=== PATIENT | male | born 1945 | race Caucasian/White ===

== ENCOUNTER 2021-10-04 08:13 | Inpatient (IN) | payer MEDICARE, OTHER ==
[2021-10-04 09:31] LABS: Bilirubin Neg (Negative); Blood, Urine 25 (Negative); Clarity Slightly Cloudy (Clear); Glucose, Urine (Dipstick) Normal (Negative); Ketone, Urine Negative (Negative); Leukocyte 500 (Negative); Nitrite Negative (Negative); Protein, Urine (Dipstick) 100 mg/dl (Neg-Trace); Specific Gravity, Urine 1.005 (1.002-1.036)
[2021-10-04] MEDS ORDERED: Cefepime 2 GM VIAL ONE (09:32)
[2021-10-04 10:08] LABS: Bacteria/HPF 4+ HPF (None Seen); RBC/HPF 0-3 HPF (0-3); Squamous Epithelial None Seen HPF (0-3); WBC/HPF 21-50 HPF (0-3)
[2021-10-04 10:36] LABS: #Monocytes 0.4 10x3/uL (0.0-1.1); #Neutrophils 5.4 10x3/uL (1.5-8.4); %Basophils 0.3 % (0.0-2.0); %Eosinophils 0.5 % (0.0-6.0); %Lymphocytes 7.5 % (18.0-47.0); %Monocytes 5.7 % (0.0-10.0); %Neutrophils 85.7 % (40.0-75.0); Hemoglobin 13.5 g/dL (13.5-17.5); Mean Corpuscular Hemoglobin 32.9 pg (27.0-33.0); Mean Corpuscular Volume 102.9 fl (81.2-95.1); Platelet Count 213 10x3/uL (150-450); RBC Distribution Width 16.9 % (11.5-14.5); White Blood Cell (WBC) Count 6.3 10x3/uL (3.5-10.5)
[2021-10-04 10:38] LABS: ALT (SGPT) 10 U/L (8-55); AST (SGOT) 29 U/L (5-34); Albumin 3.7 g/dL (3.4-4.8); Alkaline Phosphatase 179 U/L (40-110); Anion Gap 14 mmol/L (10-20); BUN (Urea Nitrogen) 16 mg/dL (8.4-25.7); Bilirubin, Total 1.7 mg/dL (0.2-1.2); Calc. Creatinine Clearance 0 mL/min (70-130); Calcium 8.8 mg/dL (7.8-10.44); Carbon Dioxide 23 mmol/L (23-31); Chloride 106 mmol/L (98-107); Globulin 3.8 g/dL (2.4-3.5); Glucose 104 mg/dL (83-110); Magnesium 1.9 mg/dL (1.6-2.6); Potassium 4.2 mmol/L (3.5-5.1); Protein, Total 7.5 g/dL (5.8-8.1); Sodium 139 mmol/L (136-145)
[2021-10-04] MEDS ORDERED: Aspirin Chewable 81 MG TAB ONE (11:38)
[2021-10-04] MEDS ORDERED: Furosemide 40 MG/4 ML VIAL ONE (11:39)
[2021-10-04 14:04] LABS: Lactic Acid 1.8 mmol/L (0.5-2.2)
[2021-10-04 14:12] LABS: Troponin I 0.041 ng/mL (< 0.028)
[2021-10-04] MEDS ORDERED: Acetaminophen 325 MG TAB PO PRN (15:00)
[2021-10-04] MEDS ORDERED: Ondansetron PF 4 MG/2 ML Vial IVP PRN (15:00)
[2021-10-04] MEDS ORDERED: Acetaminophen 650 MG Suppository PR PRN (15:00)
[2021-10-04] MEDS ORDERED: Ondansetron ODT 4 MG TAB PO PRN (15:00)
[2021-10-04] MEDS ORDERED: Furosemide 20 MG/2 ML VIAL SLOW IVP SCH (15:15)
[2021-10-04 20:27] VITALS: BMI 30.5
[2021-10-04] MEDS: Cefepime 2 GM in Sodium Chloride 0.9% 100 ML IVPB SCH (21:27)
[2021-10-04] MEDS: Enoxaparin Sodium 100 MG/ML SYRINGE SC SCH (21:29)
[2021-10-04 22:16] LABS: Troponin I 0.049 ng/mL (< 0.028)
[2021-10-04] MEDS: Vancomycin HCl 1 GM in Sodium Chloride 0.9% 250 ML 250 ML IVPB SCH (23:30)
[2021-10-05 05:24] LABS: Anion Gap 11 mmol/L (10-20); BUN (Urea Nitrogen) 16 mg/dL (8.4-25.7); Calc. Creatinine Clearance 109 mL/min (70-130); Calcium 8.2 mg/dL (7.8-10.44); Carbon Dioxide 25 mmol/L (23-31); Chloride 107 mmol/L (98-107); Glucose 100 mg/dL (83-110); Potassium 3.8 mmol/L (3.5-5.1); Sodium 139 mmol/L (136-145)
[2021-10-05 05:27] LABS: #Eosinphils 0.2 10x3/uL (0.0-0.5); #Monocytes 0.5 10x3/uL (0.0-1.1); #Neutrophils 4.6 10x3/uL (1.5-8.4); %Basophils 0.5 % (0.0-2.0); %Eosinophils 3.6 % (0.0-6.0); %Lymphocytes 15.4 % (18.0-47.0); %Monocytes 7.8 % (0.0-10.0); %Neutrophils 72.4 % (40.0-75.0); Hemoglobin 14.1 g/dL (13.5-17.5); Mean Corpuscular HGB CONC 32.6 g/dL (32.0-36.0); Mean Corpuscular Hemoglobin 32.9 pg (27.0-33.0); Mean Corpuscular Volume 100.7 fl (81.2-95.1); Platelet Count 251 10x3/uL (150-450); RBC Distribution Width 16.7 % (11.5-14.5); Red Blood Cell (RBC) Count 4.29 10x6/uL (4.32-5.72); White Blood Cell (WBC) Count 6.3 10x3/uL (3.5-10.5)
[2021-10-05] MEDS: Furosemide 20 MG/2 ML VIAL SLOW IVP SCH ×2 (06:22→15:25)
[2021-10-05] MEDS: Cefepime 2 GM in Sodium Chloride 0.9% 100 ML IVPB SCH ×2 (10:28→21:00)
[2021-10-05] MEDS: Enoxaparin Sodium 100 MG/ML SYRINGE SC SCH ×2 (10:29→21:02)
[2021-10-05] MEDS: Vancomycin HCl 1 GM in Sodium Chloride 0.9% 250 ML 250 ML IVPB SCH (11:35)
[2021-10-05 15:16] LABS: SARS-CoV-2 PCR by NAA Not Detected (NotDetected)
[2021-10-05] MEDS ORDERED: Permethrin 5% Cream 60 GM TUBE TOP SCH (16:00)
[2021-10-05 19:28] LABS: Bilirubin Neg (Negative); Blood, Urine Negative (Negative); Clarity Clear (Clear); Glucose, Urine (Dipstick) Normal (Negative); Ketone, Urine Negative (Negative); Leukocyte Negative (Negative); Nitrite Negative (Negative); Protein, Urine (Dipstick) Negative (Neg-Trace); Urobilinogen Normal mg/dL (Less than 2)
[2021-10-05 19:31] LABS: Urine Culture Reflex No No
[2021-10-05 19:44] LABS: Bacteria/HPF None Seen HPF (None Seen); RBC/HPF 0-3 HPF (0-3); Squamous Epithelial None Seen HPF (0-3); WBC/HPF 0-3 HPF (0-3)
[2021-10-05 23:19] LABS: Vancomycin, Trough 12.2 ug/mL
[2021-10-06 05:30] LABS: #Eosinphils 0.4 10x3/uL (0.0-0.5); #Monocytes 0.5 10x3/uL (0.0-1.1); #Neutrophils 3.4 10x3/uL (1.5-8.4); %Basophils 0.5 % (0.0-2.0); %Eosinophils 6.6 % (0.0-6.0); %Lymphocytes 21.1 % (18.0-47.0); %Monocytes 9.9 % (0.0-10.0); %Neutrophils 61.7 % (40.0-75.0); Hemoglobin 13.7 g/dL (13.5-17.5); Mean Corpuscular HGB CONC 33.1 g/dL (32.0-36.0); Mean Corpuscular Hemoglobin 32.9 pg (27.0-33.0); Mean Corpuscular Volume 99.5 fl (81.2-95.1); Mean Platelet Volume 9.9 fl (7.4-10.4); Platelet Count 234 10x3/uL (150-450); RBC Distribution Width 16.5 % (11.5-14.5); Red Blood Cell (RBC) Count 4.16 10x6/uL (4.32-5.72); White Blood Cell (WBC) Count 5.5 10x3/uL (3.5-10.5)
[2021-10-06 05:38] LABS: Phosphorus 2.6 mg/dL (2.3-4.7)
[2021-10-06 05:51] LABS: Anion Gap 13 mmol/L (10-20); BUN (Urea Nitrogen) 21 mg/dL (8.4-25.7); Calc. Creatinine Clearance 111 mL/min (70-130); Calcium 8.3 mg/dL (7.8-10.44); Carbon Dioxide 20 mmol/L (23-31); Chloride 106 mmol/L (98-107); Glucose 89 mg/dL (83-110); Magnesium 2.1 mg/dL (1.6-2.6); Potassium 4.4 mmol/L (3.5-5.1); Sodium 135 mmol/L (136-145)
[2021-10-06] MEDS: Furosemide 20 MG/2 ML VIAL SLOW IVP SCH ×2 (07:33→15:44)
[2021-10-06] MEDS: Cefepime 2 GM in Sodium Chloride 0.9% 100 ML IVPB SCH ×2 (10:10→22:03)
[2021-10-06] MEDS: Enoxaparin Sodium 100 MG/ML SYRINGE SC SCH ×2 (10:10→22:04)
[2021-10-07] MEDS ORDERED: diphenhydrAMINE 25 MG CAP PO PRN (00:29)
[2021-10-07 06:22] LABS: Anion Gap 11 mmol/L (10-20); BUN (Urea Nitrogen) 23 mg/dL (8.4-25.7); Calc. Creatinine Clearance 101 mL/min (70-130); Calcium 8.6 mg/dL (7.8-10.44); Carbon Dioxide 27 mmol/L (23-31); Chloride 103 mmol/L (98-107); Glucose 86 mg/dL (83-110); Magnesium 2.1 mg/dL (1.6-2.6); Potassium 4.1 mmol/L (3.5-5.1); Sodium 137 mmol/L (136-145)
[2021-10-07 06:26] LABS: Phosphorus 2.6 mg/dL (2.3-4.7)
[2021-10-07 06:51] LABS: #Eosinphils 0.3 10x3/uL (0.0-0.5); #Monocytes 0.4 10x3/uL (0.0-1.1); #Neutrophils 2.4 10x3/uL (1.5-8.4); %Eosinophils 8.1 % (0.0-6.0); %Lymphocytes 23.2 % (18.0-47.0); %Monocytes 9.8 % (0.0-10.0); %Neutrophils 57.7 % (40.0-75.0); Hemoglobin 12.8 g/dL (13.5-17.5); Mean Corpuscular HGB CONC 31.9 g/dL (32.0-36.0); Mean Corpuscular Hemoglobin 32.5 pg (27.0-33.0); Mean Corpuscular Volume 101.8 fl (81.2-95.1); Mean Platelet Volume 9.9 fl (7.4-10.4); Platelet Count 246 10x3/uL (150-450); RBC Distribution Width 16.3 % (11.5-14.5); Red Blood Cell (RBC) Count 3.94 10x6/uL (4.32-5.72); White Blood Cell (WBC) Count 4.2 10x3/uL (3.5-10.5)
[2021-10-07 09:00] VITALS: BP 125/94; TEMP 98.4
[2021-10-07] MEDS ORDERED: Furosemide 40 MG TAB PO SCH (09:00)
[2021-10-07] MEDS: Cefepime 2 GM in Sodium Chloride 0.9% 100 ML IVPB SCH (13:54)
[2021-10-07] MEDS: Enoxaparin Sodium 100 MG/ML SYRINGE SC SCH (13:54)
== END 2021-10-07 14:58 | disposition home or self-care (01) | DRG 698 ==
LOC: CSHERS 08:13 → CSHTELE 18:20
PROVIDERS: ADMIT Family Medicine; ATTEND Family Medicine
PROC: 0T2BX0Z Change Drainage Device in Bladder, External Approach (ICD-10-PCS; principal; 2021-10-04)
DX: T83.511A Infection and inflammatory reaction due to indwelling urethral catheter, initial encounter (principal); A41.9 Sepsis, unspecified organism; I50.23 Acute on chronic systolic (congestive) heart failure; N13.8 Other obstructive and reflux uropathy; I48.92 Unspecified atrial flutter; N39.0 Urinary tract infection, site not specified; N40.1 Benign prostatic hyperplasia with lower urinary tract symptoms; N18.1 Chronic kidney disease, stage 1; B86 Scabies; Y83.8 Other surgical procedures as the cause of abnormal reaction of the patient, or of later complication, without mention of misadventure at the time of the procedure; Z20.822 Contact with and (suspected) exposure to COVID-19; Z79.82 Long term (current) use of aspirin; Z79.899 Other long term (current) drug therapy; Z91.14 Patient's other noncompliance with medication regimen; Z87.891 Personal history of nicotine dependence
CPT/HCPCS: 36415; 51702; 71045; 80048; 80053; 80202; 81001; 81003; 81015; 82553; 83605; 83735; 83880; 84100; 84484; 85025; 87040; 87086; 93005; 93306; 94760; 96365; 96366; 96367; 96375; J0692; J1650; J1940; J3370; J3490; J7050; U0003; U0005